=== PATIENT | female | born 1950 | race Two or more races ===

== ENCOUNTER 2022-12-18 17:22 | Emergency (ER) | payer OTHER ==
[~2022-12-18] VITALS: Ht 188 cm; Wt 68.9 kg
[2022-12-18] MEDS ORDERED: COZAAR25 MG PO (18:07)
[2022-12-18] MEDS ORDERED: NAPROXEN500 MG PO (21:01)
[2022-12-18] MEDS ORDERED: MIRALAX510 GM PO (21:01)
== END 2022-12-18 21:05 | disposition home or self-care (01) ==
LOC: ER 17:22
PROVIDERS: General Practice
DX: R10.9 Unspecified abdominal pain (principal); K59.00 Constipation, unspecified; Z88.0 Allergy status to penicillin; Z85.43 Personal history of malignant neoplasm of ovary; E11.9 Type 2 diabetes mellitus without complications; I10 Essential (primary) hypertension; K21.9 Gastro-esophageal reflux disease without esophagitis

== ENCOUNTER 2023-02-15 13:44 | Inpatient (IN) | payer OTHER ==
[~2023-02-15] VITALS: Ht 162.6 cm; Wt 56.2 kg
[~2023-02-15 13:44] MED LIST: COZAAR25 MG PO; MIRALAX510 GM PO; NAPROXEN500 MG PO
[2023-02-15 16:02] LABS: ERYTHROCYTE SEDIMENTATION RATE 38 mm/hr
[2023-02-15 16:05] LABS: HEMATOCRIT 34.3 % (36.0-45.00); HEMOGLOBIN 11.9 g/dL (12.0-15.00); MEAN CELL VOLUME 86.7 fL (80.00-100.00); MEAN CORPUSCULAR HGB CONC 34.6 g/dl (32.0-36.0); PLATELET COUNT 276 K/uL (150-450); RED BLOOD COUNT 3.95 M/uL (4.00-6.00); RED CELL DISTRIBUTION WIDTH 14.6 % (11.5-14.5)
[2023-02-15 16:12] LABS: PH,URINE 5.5 (5.0-8.0); URINE APPEARANCE Cloudy; URINE BILIRRUBIN Negative (NEGATIVE); URINE BLOOD Small; URINE COLOR Yellow; URINE GLUCOSE Negative (NEGATIVE); URINE LEUKOCYTE Negative; URINE NITRATE Negative; URINE PROTEIN 30 (NEGATIVE); URINE UROBILINOGEN 0.2 E.U./dl
[2023-02-15 16:15] LABS: URINE BACTERIA 180.1 uL (0.0-1933); URINE EPITHELIAL CELLS 81.4 uL (0.0-38.8); URINE RBC 49.4 uL (0.0-20.8); URINE WBC 10.3 uL (0.0-23.2)
[2023-02-15 16:17] LABS: INR 1.27; PROTHROMBIN TIME 13.1 SECONDS (9.0-11.5)
[2023-02-15 16:24] LABS: ALBUMIN 2.6 gm/dL (3.4-5.0); BILIRUBIN TOTAL 0.88 mg/dL (0.3-1.2); CALCIUM 8.9 mg/dL (8.5-10.1); CREATININE SERUM 1.05 mg/dL (0.55-1.02); GFR 51.37; GLOBULINA 4.3 G/DL (2.4-3.5); POTASSIUM 3.88 mEq/L (3.5-5.1); TOTAL PROTEIN 6.9 gm/dL (6.4-8.2)
[2023-02-15 16:33] LABS: URINE CRYSTALS FEW /HPF; URINE MUCUS SCANT
[2023-02-17 04:44] LABS: HEMATOCRIT 35.3 % (36.0-45.00); MEAN CELL VOLUME 87.6 fL (80.00-100.00); MEAN CORPUSCULAR HEMOGLOBIN 29.8 pg (27.00-32.0); PLATELET COUNT 317 K/uL (150-450); RED BLOOD COUNT 4.03 M/uL (4.00-6.00); RED CELL DISTRIBUTION WIDTH 14.9 % (11.5-14.5)
[2023-02-17 05:05] LABS: BILIRUBIN TOTAL 0.7 mg/dL (0.3-1.2); CALCIUM 8.3 mg/dL (8.5-10.1); CREATININE SERUM 0.59 mg/dL (0.55-1.02); GFR 99.91; GLOBULINA 3.9 G/DL (2.4-3.5); POTASSIUM 3.19 mEq/L (3.5-5.1); TOTAL PROTEIN 5.9 gm/dL (6.4-8.2)
[2023-02-17 05:07] LABS: C-REACTIVE PROTEIN 27.8 MG/DL (0.00-0.29)
[2023-02-20 18:17] LABS: HEMATOCRIT 32.8 % (36.0-45.00); HEMOGLOBIN 11.2 g/dL (12.0-15.00); MEAN CELL VOLUME 86.2 fL (80.00-100.00); MEAN CORPUSCULAR HEMOGLOBIN 29.5 pg (27.00-32.0); MEAN CORPUSCULAR HGB CONC 34.2 g/dl (32.0-36.0); PLATELET COUNT 348 K/uL (150-450); RED BLOOD COUNT 3.81 M/uL (4.00-6.00); RED CELL DISTRIBUTION WIDTH 15.6 % (11.5-14.5)
[2023-02-20 18:33] LABS: ALBUMIN 1.6 gm/dL (3.4-5.0); BILIRUBIN TOTAL 0.74 mg/dL (0.3-1.2); CALCIUM 7.7 mg/dL (8.5-10.1); CREATININE SERUM 0.43 mg/dL (0.55-1.02); GFR 143.93; GLOBULINA 3.2 G/DL (2.4-3.5); TOTAL PROTEIN 4.8 gm/dL (6.4-8.2)
[2023-02-20 20:16] LABS: POTASSIUM 2.92 mEq/L (3.5-5.1)
[2023-02-22 07:59] LABS: HEMATOCRIT 31.5 % (36.0-45.00); HEMOGLOBIN 10.7 g/dL (12.0-15.00); MEAN CELL VOLUME 87.8 fL (80.00-100.00); MEAN CORPUSCULAR HEMOGLOBIN 29.9 pg (27.00-32.0); PLATELET COUNT 332 K/uL (150-450); RED BLOOD COUNT 3.59 M/uL (4.00-6.00); RED CELL DISTRIBUTION WIDTH 15.2 % (11.5-14.5)
[2023-02-22 08:37] LABS: ALBUMIN 1.6 gm/dL (3.4-5.0); BILIRUBIN TOTAL 0.66 mg/dL (0.3-1.2); CALCIUM 7.7 mg/dL (8.5-10.1); CREATININE SERUM 0.32 mg/dL (0.55-1.02); GFR 202.41; GLOBULINA 3.2 G/DL (2.4-3.5); POTASSIUM 3.36 mEq/L (3.5-5.1); TOTAL PROTEIN 4.8 gm/dL (6.4-8.2)
[2023-02-22] MEDS ORDERED: HYDROCHLOROTH12.5 MG (11:14)
[2023-02-22] MEDS ORDERED: DOXAZOSIN MESYLA2 MG (11:14)
[2023-02-22] MEDS ORDERED: MONTELUKAST SOD10 MG (11:15)
[2023-02-25 09:02] LABS: HEMATOCRIT 31.3 % (36.0-45.00); HEMOGLOBIN 10.6 g/dL (12.0-15.00); MEAN CELL VOLUME 86.4 fL (80.00-100.00); MEAN CORPUSCULAR HEMOGLOBIN 29.3 pg (27.00-32.0); MEAN CORPUSCULAR HGB CONC 33.9 g/dl (32.0-36.0); PLATELET COUNT 294 K/uL (150-450); RED BLOOD COUNT 3.63 M/uL (4.00-6.00); RED CELL DISTRIBUTION WIDTH 15.5 % (11.5-14.5)
[2023-02-25 09:05] LABS: ALBUMIN 1.6 gm/dL (3.4-5.0); BILIRUBIN TOTAL 0.98 mg/dL (0.3-1.2); CALCIUM 7.7 mg/dL (8.5-10.1); GLOBULINA 3.4 G/DL (2.4-3.5)
[2023-02-25 10:05] LABS: GFR 246.25
[2023-02-25 10:11] LABS: POTASSIUM 2.89 mEq/L (3.5-5.1)
[2023-02-25 10:13] LABS: CREATININE SERUM 0.27 mg/dL (0.55-1.02)
[2023-02-27 07:14] LABS: ALBUMIN 1.7 gm/dL (3.4-5.0); BILIRUBIN TOTAL 0.85 mg/dL (0.3-1.2); CREATININE SERUM 0.33 mg/dL (0.55-1.02); GFR 195.35; GLOBULINA 3.5 G/DL (2.4-3.5); POTASSIUM 3.53 mEq/L (3.5-5.1); TOTAL PROTEIN 5.2 gm/dL (6.4-8.2)
[2023-02-27 07:21] LABS: HEMATOCRIT 30.5 % (36.0-45.00); HEMOGLOBIN 10.5 g/dL (12.0-15.00); MEAN CORPUSCULAR HEMOGLOBIN 29.8 pg (27.00-32.0); MEAN CORPUSCULAR HGB CONC 34.3 g/dl (32.0-36.0); PLATELET COUNT 368 K/uL (150-450); RED BLOOD COUNT 3.51 M/uL (4.00-6.00); RED CELL DISTRIBUTION WIDTH 15.4 % (11.5-14.5)
[2023-03-01 12:44] LABS: HEMATOCRIT 33.4 % (36.0-45.00); HEMOGLOBIN 11.1 g/dL (12.0-15.00); MEAN CELL VOLUME 88.3 fL (80.00-100.00); MEAN CORPUSCULAR HEMOGLOBIN 29.2 pg (27.00-32.0); MEAN CORPUSCULAR HGB CONC 33.1 g/dl (32.0-36.0); PLATELET COUNT 445 K/uL (150-450); RED BLOOD COUNT 3.79 M/uL (4.00-6.00); RED CELL DISTRIBUTION WIDTH 15.9 % (11.5-14.5)
[2023-03-01 13:10] LABS: ALBUMIN 1.9 gm/dL (3.4-5.0); BILIRUBIN TOTAL 0.8 mg/dL (0.3-1.2); CALCIUM 8.6 mg/dL (8.5-10.1); CREATININE SERUM 0.37 mg/dL (0.55-1.02); GFR 171.19; POTASSIUM 4.21 mEq/L (3.5-5.1); TOTAL PROTEIN 5.9 gm/dL (6.4-8.2)
== END 2023-03-01 21:03 | disposition home or self-care (01) | DRG 871 ==
LOC: ER 13:44 → ICU-2 02-16 12:34 → SEC-K 02-16 12:35 → ER 02-16 12:35 → ICU 02-18 04:37 → MEDJ 02-18 20:44
PROVIDERS: General Practice; Student in an Organized Health Care Education/Training Program; ADMIT Specialist; ATTEND Specialist
PROC: BW21YZZ Computerized Tomography (CT Scan) of Abdomen and Pelvis using Other Contrast (ICD-10-PCS; principal; 2023-02-15)
PROC: 0W9F3ZZ Drainage of Abdominal Wall, Percutaneous Approach (ICD-10-PCS; 2023-02-20)
DX: A41.89 Other specified sepsis (principal); K65.1 Peritoneal abscess; R65.21 Severe sepsis with septic shock; N39.0 Urinary tract infection, site not specified; C20 Malignant neoplasm of rectum; E87.1 Hypo-osmolality and hyponatremia; I10 Essential (primary) hypertension; D72.828 Other elevated white blood cell count; B95.61 Methicillin susceptible Staphylococcus aureus infection as the cause of diseases classified elsewhere